=== PATIENT | male | born 1965 | race Caucasian/White ===

== ENCOUNTER 2020-03-24 09:10 | Outpatient (CLI) | payer BC, SELFPAY ==
--- NOTE | 2020-03-24 09:30 | MR_ITS ---
WS: [id number] INDICATION: Right wrist pain TECHNIQUE: MR of the right wrist without gadolinium enhancement. Coronal T1, PD fat sat, STIR, 3-D FS PGR, axial PD, axial T2, and sagittal T1. FINDINGS: MR of the right wrist without gadolinium enhancement. Normal radiocarpal joint. Normal dist al radial ulnar joint. Distal ulna appears normal. Normal scaphoid and lunate. Mild cystic change in the proximal and distal carpal row. Proximal metacarpals are visualized and appear normal. No proxima l metacarpal fractures. Metacarpal heads are incompletely included on this examination. Normal scapholunate interval. Scapholunate ligaments appear intact. Normal radial collateral and ulna r collateral ligaments. Normal TFCC. Carpal tunnel is normal in appearance. Normal extensor and flexo r retinaculum. Normal extensor carpi ulnaris. Mild soft tissue edema dorsal wrist. MR/MR wrist RT wo con* [id number] IMPRESSION: 1. Mild dorsal soft tissue edema. 2. No acute wrist fractures. Normal scaphoid and lunate. 3. Mild degenerative changes in the proximal and distal carpal row. 4. Proximal metacarpals appear normal. Distal metacarpals are incompletely inc luded on this examination. 5. No other significant findings.
== END 2020-03-24 09:11 | disposition home or self-care (01) ==
LOC: RADWPI 09:25
PROVIDERS: PCP Nurse Practitioner Family; Visit Provider Nurse Practitioner Family
DX: M25.531 Pain in right wrist (principal); R60.9 Edema, unspecified
CPT/HCPCS: 73221

== ENCOUNTER 2022-02-01 08:45 | Outpatient (CLI) | payer BC, SELFPAY ==
--- NOTE | 2022-02-01 | XR_ITS ---
WS: [id number] Cervical spine, AP, AP odontoid, lateral views in flexion, extension and neutral position, 02/01/2022 Clinical Data: NECK PAIN BILATERAL Comparison: None. Findings: No compression fractures are seen. There is degenerative disc narrowing at C5-C6 and C6-C7 with anterior and posterior osteophytes. On flexion and extension there is no limitation of motion or subluxation. There is no prevertebral soft tissue swelling. The odontoid is unremarkable. The soft t issues of the neck and the lung apices are normal. XR/XR cervical spine 4-5V [id number] Impression: 1. Degenerative disc narrowing at C5-C6 and C6-C7 with anterior and posterior o steophytes. 2. Negative for limitation of motion or subluxation on flexion or extension.
== END 2022-02-01 08:46 | disposition home or self-care (01) ==
LOC: RADOUTREAD 02-06 09:03
PROVIDERS: PCP Nurse Practitioner Family; Visit Provider Nurse Practitioner Family
DX: M54.2 Cervicalgia (principal); M25.78 Osteophyte, vertebrae; M48.02 Spinal stenosis, cervical region
CPT/HCPCS: 72050

== ENCOUNTER 2023-05-28 14:44 | Outpatient (CLI) | payer OTHER, SELFPAY ==
--- NOTE | 2023-05-28 | MR_ITS ---
WS: [id number] MRI LEFT SHOULDER HISTORY: LEFT SHOULDER PAIN, limited range of motion. COMPARISON: LEFT shoulder radiograph 05/28/2023 TECHNIQUE: Multiplanar sequences of the shoulder joint are submitted. Mild AC joint arthritis. Mild narrowing of the joint space with hypertrophic osteophytes. 3 mm osteop hyte encroaches upon the supraspinatus. There is deformity of the supraspinatus muscle. Downsloping o f the acromion with moderate subacromial impingement. No significant subacromial subdeltoid fluid. Bi ceps tendon is in normal position. No os acromion. Mild tendinopathy in the distal supraspinatus tendon. There is no tear or retraction. Subscapularis a nd infraspinatus tendons are intact. No muscle atrophy or edema. Increased T2 signal in the anterior and superior labrum. IMPRESSION: 1. Mild AC joint arthritis. Small osteophyte encroaches upon the supraspinatus muscle. 2. Mild downsloping of the acromion with moderate subacromial impingement upon the supraspinatus tend on. 3. Mild tendinopathy distal supraspinatus tendon. 4. Anterior superior labral tear.
== END 2023-05-28 14:45 | disposition home or self-care (01) ==
PROVIDERS: PCP Nurse Practitioner Family; Visit Provider Nurse Practitioner Family
DX: M19.012 Primary osteoarthritis, left shoulder (principal); M25.78 Osteophyte, vertebrae; S43.432A Superior glenoid labrum lesion of left shoulder, initial encounter; X58.XXXA Exposure to other specified factors, initial encounter; M75.42 Impingement syndrome of left shoulder; M75.102 Unspecified rotator cuff tear or rupture of left shoulder, not specified as traumatic
CPT/HCPCS: 73030; 73221

== ENCOUNTER 2023-11-10 11:54 | Emergency (ER) | payer OTHER, SELFPAY ==
[2023-11-10 11:58] VITALS: BP 168/89; PULSE 92; RESP 16; TEMP 36.8; O2SAT 96; BMI 29.9
--- NOTE | 2023-11-10 13:07 | W.ED.BACK ---
HPI - Back Pain/Injury General: Chief Complaint: Back Pain/Injury Stated Complaint: lower back pain Time Seen by Provider: 11/10/23 12:59 Source: patient Mode of arrival: wheelchair Limitations: no limitations History of Present Illness: Patient is a very nice 58-year-old male who presents to ED today with complaint of low back pain. Patient states yesterday he was putting on his shoes/socks and when he lifted up his left leg to do so he immediately felt pain in his lower back. Patient states he then went to work hoping that the back discomfort would work its way out but it persisted throughout the day and evening and into today. He is not having any radicular discomfort down into his buttocks or legs. He is not having any saddle anesthesia. He is urinating and defecating normally. MD elicited complaint: back pain Onset (ago): day(s) (yesterday) Timing: constant Severity: moderate (at rest; severe with certain movements such as sitting to standing) Similar Symptoms Previously: Yes (states other times he has thrown back out it will resolve on its own) Quality: sharp and aching Location: lumbar spine Radiation: none Exacerbating factors: movement and walking Relieving factors: immobilization Associated symptoms: Reports no associated symptoms and difficulty walking (secondary to back pain); Deny abdominal pain, chills, dysuria, fever(s) or hematuria Work related injury: No Review of Systems Const: Denies: fever(s), chills or body aches Card: Denies: chest pain Resp: Denies: dyspnea GI: Denies: abdominal pain : Denies: flank pain, dysuria or hematuria Musc: Reports: back pain; Denies: neck pain, extremity pain, extremity swelling, joint pain or joint swelling Skin/Breast: Denies: rash Neuro: Reports: difficulty walking (secondary to back pain); Denies: headache(s), numbness in extremities, weakness in extremities or sensory changes PFS ED PFSH: Medical History Hypertension Family History Denies family history of Diabetes Cancer Social History Smoking and tobacco/nicotine status: current every day tobacco/nicotine user Alcohol intake: current Alcohol intake frequency: few times a month Household members: none Current occupational status: employed Current occupation: [employer] Physical Exam Const: COMMON NORMALS: no acute distress, average body habitus, patient oriented x3, no limitations, healthy appearing, alert and well nourished Back/Pelvis: THORACIC SPINE/UPPER BACK: No thoracic spinal tenderness, No paraspinal muscle tenderness and No paraspinal muscle spasm LUMBAR SPINE/LOWER BACK: Yes lumbar spinal tenderness, No paraspinal muscle tenderness and No paraspinal muscle spasm PELVIS: Yes buttocks normal SACROILIAC JOINTS: Yes SI joints normal SACRUM: no tenderness COCCYX: no tenderness Extremity: COMMON NORMALS: normal to inspection, full ROM, capillary refill normal, no joint enlargement, no clubbing, cyanosis or edema, no calf tenderness and no pedal edema GENERAL: Yes normal exam except as noted Neuro: COMMON NORMALS: patient oriented x3, moves all extremities, no focal motor deficits and no sensory deficits noted SENSORIUM/ORIENTATION: Yes alert MOTOR EXAM: 5/5 motor strength present throughout DEEP TENDON REFLEXES: Right patellar reflex intensity grade: 2+ and Left patellar reflex intensity grade: 2+ Skin: COMMON NORMALS: no rashes or lesions noted GENERAL SKIN EXAM: no rashes or lesions noted Course Vital Signs: Vital signs: Vital Signs Temperature 98.2 F 11/10/23 11:58 Pulse Rate 67 11/10/23 13:57 Respiratory Rate 16 11/10/23 13:57 Blood Pressure 124/79 11/10/23 13:57 Pulse Oximetry 96 11/10/23 13:57 Oxygen Delivery Me thod Room Air 11/10/23 13:57 MDM - Back Pain/Injury Medical Decision Making Patient with no red flag symptoms on his history or physical examination. XR showing no acute findings. He did feel better after medications given here and ambulated well. Patient states he already takes an anti-inflammatory at home. Will add steroids and muscle relaxers as well as something for pain he can take as needed. Recommend follow-up with primary care in a week or so if symptoms do not seem to improve. Return to ED precautions given. Labs Radiology Impressions Lumbar Spine X-Ray 11/10/23 13:21 IMPRESSION: No acute findings. All radiology interpretation(s) finalized by discharge Discharge Plan Discharge Patient Disposition: Home Clinical Impression: Low back strain Qualifiers: Encounter type: initial encounter Qualified Code(s): S39.012A - Strain of muscle, fascia and tendon of lower back, initial encounter Condition: Stable Prescriptions: New methocarbamol 500 mg tablet 1,000 mg PO Q8H Qty: 30 0RF Medrol (Farrukh) 4 mg tablets,dose pack See Rx Instructions .ROUTE .COMPLEX Qty: 21 0RF Rx Instructions: orally per package directions tramadol 50 mg tablet 50 mg PO Q6H PRN (Reason: pain) Qty: 10 0RF No Action lamotrigine [Lamictal] 200 mg tablet 100 mg PO BID Qty: 60 3RF diclofenac sodium 75 mg tablet,delayed release (DR/EC) 75 mg PO BID levothyroxine 25 mcg capsule 25 mcg PO DAILY lisinopril 20 mg tablet 20 mg PO DAILY metoprolol succinate [Toprol XL] 25 mg tablet extended release 24 hr 25 mg PO DAILY doxepin 25 mg capsule 25 mg PO DAILY meloxicam 15 mg tablet See Rx Instructions .ROUTE .COMPLEX Qty: 30 0RF Dose Instruction: Take 1 tablet by mouth once daily Rx Instructions: Take 1 tablet by mouth once daily Discharge Orders: Discharge ED (Routine); Ordered 11/10/23 Ordered By: Kylah Vasquez Referrals: Dalila Curran FNP [Primary Care Provider] - Patient Instructions: Low Back Strain (ED) Coding Level of Care Code ED [employer] Equipment Service Technician for Marcos Calle
--- NOTE | 2023-11-10 13:21 | XRR_ITS ---
PROCEDURE INFORMATION: Exam: XR Lumbosacral Spine Exam date and time: 11/10/2023 1:39 PM Age: 58 years old Clinical indication: Low back pain; Patient HX: No injury noted; Additional info: Back pain/injury TECHNIQUE: Imaging protocol: Radiologic exam of the lumbosacral spine. Views: 2 or 3 views. COMPARISON: CT abdomen pelvis w con* [id number] 03/06/2018 5:10 PM FINDINGS: Bones/joints: Left L5-S1 assimilation joint. Vertebral body heights are preserved. No acute fracture. Mild facet arthrosis in the lower lumbar spine. Soft tissues: Vascular calcifications. XR/XR lumbar spine 2-3V* [id number] IMPRESSION: No acute findings.
[2023-11-10] MEDS: ketorolac 60 mg/2 mL INJ IM (13:28)
[2023-11-10 13:29] VITALS: RESP 18; O2SAT 98
[2023-11-10] MEDS: orphenadrine 30 mg/mL Inj 2 mL 60 MG IM (13:29)
[2023-11-10] MEDS: dexamethasone 10 mg/mL INJ 8 MG IM (13:29)
[2023-11-10] MEDS: morphine 4 mg/mL SDV 1 mL IM (13:29)
[2023-11-10 13:57] VITALS: BP 124/79; PULSE 67; RESP 16; O2SAT 96
--- NOTE | 2023-11-10 13:58 | PC.NURSE ---
pain now 10/18
== END 2023-11-10 14:25 | disposition home or self-care (01) ==
PROVIDERS: Emergency Provider Physician Assistant; PCP Nurse Practitioner Family
DX: S39.012A Strain of muscle, fascia and tendon of lower back, initial encounter (principal); I10 Essential (primary) hypertension; Z72.0 Tobacco use; X50.9XXA Other and unspecified overexertion or strenuous movements or postures, initial encounter
CPT/HCPCS: 72100; 96372; 99284; J1100; J1885; J2270; J2360